=== PATIENT | male | born 1980 | race Caucasian/White ===

== ENCOUNTER 2025-03-06 15:14 | Emergency (ER) | payer OTHER ==
[~2025-03-06] VITALS: Ht 439.4 cm; Wt 118.0 kg
[2025-03-06] MEDS ORDERED: JARDIANCE10 MG PO (16:09)
[2025-03-06] MEDS ORDERED: METFORMIN HCL1000 M1 PO (16:09)
[2025-03-06] MEDS ORDERED: LIPITOR10 MG PO (16:10)
[2025-03-06] MEDS ORDERED: OZEMPIC2 MG/0.75 SUB-Q (16:10)
[2025-03-06] MEDS ORDERED: METOPROLOL SUCC25 MG PO (16:11)
[2025-03-06 18:02] LABS: BILIRUBIN, URINE NEGATIVE (negative); BLOOD/HGB, URINE NEGATIVE (Negative); KETONE, URINE NEGATIVE (Negative); LEUK ESTERASE, URINE NEGATIVE (negative); NITRITE, URINE NEGATIVE (negative)
[2025-03-06 18:18] LABS: AMPHETAMINES, URINE NEGATIVE (NEGATIVE); BARBITURATES, URINE NEGATIVE (NEGATIVE); BENZODIAZEPINE, URINE NEGATIVE (NEGATIVE); BUPRENORPHINE, URINE NEGATIVE (NEGATIVE); CANNABINOID, URINE NEGATIVE (NEGATIVE); COCAINE, URINE NEGATIVE (NEGATIVE); ECSTASY, URINE NEGATIVE (NEGATIVE); FENTANYL, URINE POSITIVE (NEGATIVE); METHADONE, URINE NEGATIVE (NEGATIVE); OPIATES, URINE NEGATIVE (NEGATIVE); OXYCODONE, URINE NEGATIVE (NEGATIVE); PHENCYCLIDINE, URINE NEGATIVE (NEGATIVE)
[2025-03-06 18:25] LABS: BASOPHILS 0.6 % (0-2); EOSINOPHILS 1.8 % (0-6); HEMATOCRIT 45.5 % (35.0-50.0); HEMOGLOBIN 15.7 g/dL (12.0-18.0); LYMPHOCYTES 35.5 % (24-44); MCH 30.8 (27-36); MCHC 34.5 g/dl (30-36); MCV 89.2 fl (81-99); MONOCYTES 7.7 % (0-12); NEUTROPHILS 54.4 % (39-80); PLATELET COUNT 271 K/uL (140-440); RDW 13.8 (10.5-15.0)
[2025-03-06 18:39] LABS: ALBUMIN 3.9 g/dL (3.4-5.0); ALCOHOL, MEDICAL <3 ng/dL (<3); ALKALINE PHOSPHATASE 119 U/L (46-116); ALT (SGPT) 26 U/L (14-59); AST (SGOT) 14 U/L (15-37); BILIRUBIN, TOTAL 0.6 mg/dL (0.2-1.0); BUN/CREATININE RATIO 26.19 (6.0-28.6); CALCIUM 8.9 mg/dL (8.5-10.1); CARBON DIOXIDE 25 mmol/L (21-32); CHLORIDE 102 mmol/L (98-107); CREATININE, SERUM 0.84 mg/dL (0.70-1.30); GLOMERULAR FILTRATION RATE,EST 109 mL/min (>60); PROTEIN, TOTAL 7.8 g/dL (6.4-8.2); UREA NITROGEN 22 mg/dL (7-18)
[2025-03-06 19:04] LABS: ABO A; ANTIBODY SCREEN NEGATIVE; RH POSITIVE
[2025-03-06] MEDS ORDERED: CYCLOBENZAPRINE HCL 10 MG TAB PO ONE (20:30)
[2025-03-06] MEDS ORDERED: IBUPROFEN 600 MG TAB PO ONE (20:30)
[2025-03-06 20:36] VITALS: BP 122/79
== END 2025-03-06 20:43 | disposition home or self-care (01) ==
LOC: ED 15:14
PROVIDERS: Emergency Medicine
DX: S16.1XXA Strain of muscle, fascia and tendon at neck level, initial encounter (principal); M25.511 Pain in right shoulder; V68.5XXA Driver of heavy transport vehicle injured in noncollision transport accident in traffic accident, initial encounter; E11.9 Type 2 diabetes mellitus without complications; J45.909 Unspecified asthma, uncomplicated; I48.91 Unspecified atrial fibrillation; Z88.0 Allergy status to penicillin; Z91.010 Allergy to peanuts; Z79.84 Long term (current) use of oral hypoglycemic drugs; Z79.899 Other long term (current) drug therapy
CPT/HCPCS: 36415; 70450; 71260; 72125; 73030; 80053; 80307; 81003; 83605; 85025; 86850; 86900; 86901; 99284-25; A9270; G0480; Q9967